=== PATIENT | male | born 1980 | race Caucasian/White ===

== ENCOUNTER → 2016-03-06 | Outpatient (CLI) | payer MEDICARE, MEDICAID ==
--- NOTE | 2016-03-06 14:49 | REP ---
MRI LUMBAR SPINE WITHOUT CONTRAST: 03/06/2016 CLINICAL HISTORY: Severe low back pain. TECHNIQUE: Sagittal T1, T2 and STIR images with axial T1-T2 sequences provided. FINDINGS: There are no comparison studies. The sagittal images show loss of normal lordosis. The disc space height is decreased at L4-5 and more at L5-S1 with loss of disc water signal at both those levels. The disc height and water signal at L3-4 and above are maintained. The vertebral body heights and marrow signal are normal from T12 through S2. Conus terminates at mid body of L1. T12-L1, L1-2, L2-3, L3-4 disc levels all show no sign of spinal or foraminal stenosis. No significant disc bulge or posterior element abnormality. At L4-5, there is a broad-based disc bulge flattening the ventral thecal sac. There is a left paracentral disc protrusion abutting and displacing the left L5 nerve root in the canal. The cross-sectional area of the canal is adequate. The foramen on the right and left side arm both marginally adequate. At L5-S1, this also a broad-based disc bulge abutting but not displacing the S1 nerve roots in the central canal. Cross-sectional area of the canal is adequate. The foramina show encroachment on the left minimally and more on the right. Some nerve root compression suggested on the right. No spondylolysis or spondylolisthesis. IMPRESSION: 1. L4-5 broad-based disc bulge with left paracentral disc protrusion abutting and displacing the L5 root in the neural canal and with marginally adequate foramina at this level. 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 2. At L5-S1, there is a broad-based disc bulge abutting the S1 roots in the canal but not causing central canal stenosis. The foramina showed some mild encroachment on the right and minimal on the left. Some nerve root compression is suggested on that right side. No level shows spondylolysis or spondylolisthesis. No other significant finding. Signed by Charles Flower MD 03/06/2016 07:36 P
== END ==
LOC: M RAD 12:35
PROVIDERS: ATTEND Internal Medicine Infectious Disease
DX: M54.5 Low back pain (principal)

== ENCOUNTER → 2016-10-26 | Outpatient (REF) | payer MEDICARE, MEDICAID ==
[2016-10-26 13:28] LABS: ALBUMIN 3.8 GM/DL (3.2-5.2); ALBUMIN/GLOBULIN RATIO 1.31 (1.00-1.93); ALKALINE PHOSPHATASE 83 U/L (45-117); ALT/SGPT 21 U/L (12-78); ANION GAP 8 MEQ/L (8-16); AST/SGOT 12 U/L (15-37); BILIRUBIN,TOTAL 0.5 MG/DL (0.2-1.0); BLOOD UREA NITROGEN 13 MG/DL (7-18); CALCIUM LEVEL 9.2 MG/DL (8.5-10.1); CARBON DIOXIDE LEVEL 27 MEQ/L (21-32); CHLORIDE LEVEL 109 MEQ/L (98-107); CHOLESTEROL LEVEL 101 MG/DL (<200); CREATININE FOR GFR 1.14 MG/DL (0.70-1.30); GLOMERULAR FILTRATION RATE > 60.0 (>60); GLUCOSE, FASTING 100 MG/DL (70-105); POTASSIUM SERUM 4.5 MEQ/L (3.5-5.1); SODIUM LEVEL 144 MEQ/L (136-145); TOTAL PROTEIN 6.7 GM/DL (6.4-8.2); TRIGLYCERIDES LEVEL 41 MG/DL (<150)
[2016-10-30 14:11] LABS: Eosinophils 1 % (.); HCT 45.5 % (37.5-51.0); HGB 15.4 g/dL (12.6-17.7); Monocytes 7 % (.); Neutrophils 71 % (.); WBC 8.2 x10E3/uL (3.4-10.8)
== END ==
LOC: M SFHCPLAZ 09:29
PROVIDERS: ATTEND Internal Medicine Infectious Disease
DX: B20 Human immunodeficiency virus [HIV] disease (principal); Z13.220 Encounter for screening for lipoid disorders; S32.000A Wedge compression fracture of unspecified lumbar vertebra, initial encounter for closed fracture; F41.1 Generalized anxiety disorder; M51.26 Other intervertebral disc displacement, lumbar region; Z23 Encounter for immunization; Z79.899 Other long term (current) drug therapy; X58.XXXA Exposure to other specified factors, initial encounter; Y92.9 Unspecified place or not applicable; Y93.9 Activity, unspecified; Y99.9 Unspecified external cause status
CPT/HCPCS: 36415; 80053; 80061; 81001; 86360; 86480; 86780; 87491; 87536; 87591; 90686; G0008; G0463

== ENCOUNTER → 2017-05-07 | Outpatient (REF) | payer MEDICAID, MEDICARE, SELFPAY ==
[2017-05-07 12:57] LABS: ALBUMIN 4.1 GM/DL (3.2-5.2); ALBUMIN/GLOBULIN RATIO 1.32 (1.00-1.93); ALKALINE PHOSPHATASE 92 U/L (45-117); ALT/SGPT 22 U/L (12-78); ANION GAP 6 MEQ/L (8-16); AST/SGOT 16 U/L (7-37); BILIRUBIN,TOTAL 1.2 MG/DL (0.2-1.0); BLOOD UREA NITROGEN 18 MG/DL (7-18); CALCIUM LEVEL 9.1 MG/DL (8.5-10.1); CARBON DIOXIDE LEVEL 27 MEQ/L (21-32); CHLORIDE LEVEL 108 MEQ/L (98-107); GLOMERULAR FILTRATION RATE > 60.0 (>60); GLUCOSE, FASTING 89 MG/DL (70-100); POTASSIUM SERUM 4.7 MEQ/L (3.5-5.1); SODIUM LEVEL 141 MEQ/L (136-145); TOTAL PROTEIN 7.2 GM/DL (6.4-8.2)
[2017-05-07 17:05] LABS: APPEARANCE, URINE CLEAR (CLEAR); BACTERIA, URINE AUTO NEGATIVE (NEGATIVE); BILIRUBIN, URINE AUTO NEGATIVE (NEGATIVE); BLOOD, URINE BLOOD 1+ (NEGATIVE); CALCIUM OXALATE CRYSTALS SMALL; COLOR, URINE AMBER (YELLOW); GLUCOSE, URINE (UA) AUTO NEGATIVE (NEGATIVE); KETONE, URINE AUTO NEGATIVE (NEGATIVE); LEUKOCYTE ESTERASE, URINE AUTO NEGATIVE (NEGATIVE); MUCUS, URINE SMALL (NEGATIVE); NITRITE, URINE AUTO NEGATIVE (NEGATIVE); PROTEIN, URINE AUTO NEGATIVE (NEGATIVE); RBC, URINE AUTO 4 /HPF (0-3); SPECIFIC GRAVITY URINE AUTO 1.024 (1.002-1.035); SQUAMOUS EPITHELIAL CELL UR AU 0 /HPF (0-6); WBC, URINE AUTO 1 /HPF (0-3)
[2017-05-07 19:31] LABS: CHLAMYDIA DNA AMPLIFICATION NEGATIVE (NEGATIVE); GC DNA AMPLIFICATION NEGATIVE (NEGATIVE)
[2017-05-09 14:13] LABS: % CD8 Pos Lymph 71.4 % (12.0-35.5); %CD4 Pos Lymphs 16.1 % (30.8-58.5); ABS Eosinophils 0.1 x10E3/uL (0.0-0.4); ABS Lymphs 2.3 x10E3/uL (0.7-3.1); ABS Monocytes 0.6 x10E3/uL (0.1-0.9); ABS Neutophils 4.1 x10E3/uL (1.4-7.0); Abs CD4 Helper 370 /uL (359-1519); Abs CD8 Suppres 1642 /uL (109-897); CD4/CD8 Ratio 0.23 (0.92-3.72); Eosinophils 1 % (Not Estab.); HCT 50.2 % (37.5-51.0); HIV-1 RNA PCR QUANT 2 LC550285 <20 copies/mL (.); Immature Grans 0 % (Not Estab.); Lymphocytes 32 % (Not Estab.); MCH 33.5 pg (26.6-33.0); MCHC 33.9 g/dL (31.5-35.7); MCV 99 fL (79-97); Monocytes 9 % (Not Estab.); Neutrophils 58 % (Not Estab.); Platelets 253 x10E3/uL (150-379); QUANTIFERON GOLD TB Negative (Negative); RBC 5.08 x10E6/uL (4.14-5.80); RDW 13.8 % (12.3-15.4); TB Test (QFT) Antigen 0.05 IU/mL (.); TB Test (QFT) Mitogen >10.00 IU/mL (.); TB Test (QFT) Nil 0.05 IU/mL (.); WBC 7.1 x10E3/uL (3.4-10.8)
== END ==
LOC: M SFHCPLAZ 09:58
DX: B20 Human immunodeficiency virus [HIV] disease (principal); F41.1 Generalized anxiety disorder; A63.0 Anogenital (venereal) warts; M51.26 Other intervertebral disc displacement, lumbar region; Z23 Encounter for immunization; Z79.899 Other long term (current) drug therapy
CPT/HCPCS: 80053

== ENCOUNTER → 2017-12-06 | Outpatient (REF) | payer OTHER, MEDICAID ==
[2017-12-06 14:28] LABS: ALBUMIN 3.2 GM/DL (3.2-5.2); ALKALINE PHOSPHATASE 89 U/L (45-117); ALT/SGPT 22 U/L (12-78); ANION GAP 8 MEQ/L (8-16); AST/SGOT 17 U/L (7-37); BILIRUBIN,TOTAL 0.5 MG/DL (0.2-1.0); BLOOD UREA NITROGEN 16 MG/DL (7-18); CALCIUM LEVEL 8.5 MG/DL (8.5-10.1); CARBON DIOXIDE LEVEL 30 MEQ/L (21-32); CHLORIDE LEVEL 105 MEQ/L (98-107); CREATININE FOR GFR 1.05 MG/DL (0.70-1.30); GLOMERULAR FILTRATION RATE > 60.0 (>60); GLUCOSE, FASTING 64 MG/DL (70-100); POTASSIUM SERUM 4.2 MEQ/L (3.5-5.1); SODIUM LEVEL 143 MEQ/L (136-145); TOTAL PROTEIN 6.1 GM/DL (6.4-8.2)
[2017-12-06 16:36] LABS: CHLAMYDIA DNA AMPLIFICATION NEGATIVE (NEGATIVE); GC DNA AMPLIFICATION NEGATIVE (NEGATIVE)
[2017-12-11 00:07] LABS: % CD8 Pos Lymph 67.8 % (12.0-35.5); %CD4 Pos Lymphs 19.8 % (30.8-58.5); ABS Basophils 0.1 x10E3/uL (0.0-0.2); ABS Eosinophils 0.2 x10E3/uL (0.0-0.4); ABS Lymphs 2.1 x10E3/uL (0.7-3.1); ABS Monocytes 0.7 x10E3/uL (0.1-0.9); ABS Neutophils 3.7 x10E3/uL (1.4-7.0); Abs CD4 Helper 416 /uL (359-1519); Abs CD8 Suppres 1424 /uL (109-897); CD4/CD8 Ratio 0.29 (0.92-3.72); CHLAMYDIA PHARYNGEAL APTIMA Negative (Negative); Eosinophils 3 % (Not Estab.); GC PHARYNGEAL APTIMA Negative (Negative); HCT 42.6 % (37.5-51.0); HGB 14.5 g/dL (13.0-17.7); HIV-1 RNA PCR QUANT 2 LC550285 20 copies/mL (.); HIV-1 RNA PCR QUANT 3 LC550285 1.301 (.); Immature Grans 0 % (Not Estab.); Lymphocytes 31 % (Not Estab.); MCV 94 fL (79-97); Monocytes 10 % (Not Estab.); Neutrophils 55 % (Not Estab.); Platelets 289 x10E3/uL (150-379); RBC 4.53 x10E6/uL (4.14-5.80); WBC 6.8 x10E3/uL (3.4-10.8)
== END ==
LOC: M SFHCPLAZ 10:38
DX: B20 Human immunodeficiency virus [HIV] disease (principal); Z11.3 Encounter for screening for infections with a predominantly sexual mode of transmission

== ENCOUNTER → 2018-06-10 | Outpatient (REF) | payer MEDICAID, OTHER ==
[2018-06-10 12:03] LABS: APPEARANCE, URINE CLEAR (CLEAR); BACTERIA, URINE AUTO NEGATIVE (NEGATIVE); BILIRUBIN, URINE AUTO NEGATIVE (NEGATIVE); BLOOD, URINE BLOOD NEGATIVE (NEGATIVE); COLOR, URINE YELLOW (YELLOW); GLUCOSE, URINE (UA) AUTO NEGATIVE (NEGATIVE); KETONE, URINE AUTO NEGATIVE (NEGATIVE); LEUKOCYTE ESTERASE, URINE AUTO NEGATIVE (NEGATIVE); NITRITE, URINE AUTO NEGATIVE (NEGATIVE); PROTEIN, URINE AUTO NEGATIVE (NEGATIVE); RBC, URINE AUTO 1 /HPF (0-3); SPECIFIC GRAVITY URINE AUTO 1.008 (1.002-1.035); SQUAMOUS EPITHELIAL CELL UR AU 0 /HPF (0-6); UROBILINOGEN, URINE AUTO 0.2 mg/dL (0.0-2.0); WBC, URINE AUTO 0 /HPF (0-3)
[2018-06-10 12:39] LABS: ALBUMIN 3.7 GM/DL (3.2-5.2); ALT/SGPT 17 U/L (12-78); BILIRUBIN,TOTAL 0.9 MG/DL (0.2-1.0); BLOOD UREA NITROGEN 19 MG/DL (7-18); CALCIUM LEVEL 8.5 MG/DL (8.5-10.1); CARBON DIOXIDE LEVEL 28 MEQ/L (21-32); CHLORIDE LEVEL 107 MEQ/L (98-107); CREATININE FOR GFR 1.11 MG/DL (0.70-1.30); GLOMERULAR FILTRATION RATE > 60.0 (>60); GLUCOSE, FASTING 75 MG/DL (70-100); SODIUM LEVEL 139 MEQ/L (136-145); TOTAL PROTEIN 6.2 GM/DL (6.4-8.2)
[2018-06-10 13:31] LABS: CHLAMYDIA DNA AMPLIFICATION NEGATIVE (NEGATIVE); GC DNA AMPLIFICATION NEGATIVE (NEGATIVE)
[2018-06-12 00:06] LABS: % CD8 Pos Lymph 65.5 % (12.0-35.5); %CD4 Pos Lymphs 18.9 % (30.8-58.5); ABS Eosinophils 0.1 x10E3/uL (0.0-0.4); ABS Lymphs 2.5 x10E3/uL (0.7-3.1); ABS Monocytes 0.6 x10E3/uL (0.1-0.9); ABS Neutophils 2.7 x10E3/uL (1.4-7.0); Abs CD4 Helper 473 /uL (359-1519); Abs CD8 Suppres 1638 /uL (109-897); CD4/CD8 Ratio 0.29 (0.92-3.72); Eosinophils 2 % (Not Estab.); HCT 45.7 % (37.5-51.0); HGB 15.5 g/dL (13.0-17.7); Immature Grans 0 % (Not Estab.); Lymphocytes 42 % (Not Estab.); MCH 32.8 pg (26.6-33.0); MCHC 33.9 g/dL (31.5-35.7); MCV 97 fL (79-97); Monocytes 11 % (Not Estab.); Neutrophils 45 % (Not Estab.); Platelets 229 x10E3/uL (150-379); RBC 4.73 x10E6/uL (4.14-5.80); RDW 13.9 % (12.3-15.4)
[2018-06-13 00:06] LABS: HIV-1 RNA PCR QUANT 2 LC550285 <20 copies/mL (.)
== END ==
LOC: M SFHCPLAZ 09:23
PROVIDERS: ATTEND Internal Medicine Infectious Disease
DX: B20 Human immunodeficiency virus [HIV] disease (principal)

== ENCOUNTER → 2018-12-30 | Outpatient (REF) | payer OTHER ==
[2018-12-30 16:07] LABS: ALBUMIN 4.1 GM/DL (3.2-5.2); ALT/SGPT 22 U/L (12-78); BILIRUBIN,TOTAL 0.9 MG/DL (0.2-1.0); BLOOD UREA NITROGEN 14 MG/DL (7-18); CALCIUM LEVEL 9.7 MG/DL (8.5-10.1); CARBON DIOXIDE LEVEL 28 MEQ/L (21-32); CHLORIDE LEVEL 107 MEQ/L (98-107); CREATININE FOR GFR 0.93 MG/DL (0.70-1.30); GLOMERULAR FILTRATION RATE > 60.0 (>60); GLUCOSE, FASTING 85 MG/DL (70-100); POTASSIUM SERUM 4.2 MEQ/L (3.5-5.1); SODIUM LEVEL 140 MEQ/L (136-145); TOTAL PROTEIN 7.3 GM/DL (6.4-8.2)
== END ==
LOC: M SFHCPLAZ 12:57
PROVIDERS: ATTEND Internal Medicine Infectious Disease
DX: B20 Human immunodeficiency virus [HIV] disease (principal)

== ENCOUNTER → 2019-04-24 | Outpatient (REF) | payer OTHER, SELFPAY | LOC: M LAB REF 17:17 | PROVIDERS: ATTEND Dermatology | DX: D49.2 Neoplasm of unspecified behavior of bone, soft tissue, and skin (principal) ==

== ENCOUNTER → 2019-08-25 | Outpatient (REF) | payer MEDICAID, OTHER, SELFPAY ==
[2019-08-25 13:42] LABS: ALBUMIN 3.7 GM/DL (3.2-5.2); ALT/SGPT 20 U/L (12-78); BILIRUBIN,TOTAL 1.7 MG/DL (0.2-1.0); BLOOD UREA NITROGEN 13 MG/DL (7-18); CARBON DIOXIDE LEVEL 28 MEQ/L (21-32); CHLORIDE LEVEL 105 MEQ/L (98-107); CREATININE FOR GFR 1.27 MG/DL (0.70-1.30); GLOMERULAR FILTRATION RATE > 60.0 (>60); GLUCOSE, FASTING 88 MG/DL (70-100); POTASSIUM SERUM 4.1 MEQ/L (3.5-5.1); SODIUM LEVEL 138 MEQ/L (136-145); TOTAL PROTEIN 6.9 GM/DL (6.4-8.2)
[2019-08-27 16:08] LABS: % CD8 Pos Lymph 57.5 % (12.0-35.5); %CD4 Pos Lymphs 23.4 % (30.8-58.5); ABS Basophils 0.1 x10E3/uL (0.0-0.2); ABS Eosinophils 0.1 x10E3/uL (0.0-0.4); ABS Monocytes 0.8 x10E3/uL (0.1-0.9); ABS Neutophils 3.2 x10E3/uL (1.4-7.0); Abs CD4 Helper 468 /uL (359-1519); Abs CD8 Suppres 1150 /uL (109-897); CD4/CD8 Ratio 0.41 (0.92-3.72); Eosinophils 2 % (Not Estab.); HCT 49.1 % (37.5-51.0); HIV-1 RNA PCR QUANT 2 LC550285 <20 copies/mL (.); Immature Grans 0 % (Not Estab.); Lymphocytes 33 % (Not Estab.); MCH 33.5 pg (26.6-33.0); MCHC 34.6 g/dL (31.5-35.7); MCV 97 fL (79-97); Monocytes 13 % (Not Estab.); Neutrophils 51 % (Not Estab.); Platelets 292 x10E3/uL (150-450); RBC 5.07 x10E6/uL (4.14-5.80); RDW 12.9 % (11.6-15.4); WBC 6.2 x10E3/uL (3.4-10.8)
== END ==
LOC: M SFHCPLAZ 09:55
PROVIDERS: ATTEND Internal Medicine Infectious Disease
DX: B20 Human immunodeficiency virus [HIV] disease (principal)

== ENCOUNTER → 2019-11-03 | Outpatient (CLI) | payer MEDICAID ==
[2019-11-03 16:08] LABS: PLATELET COUNT, AUTOMATED 256 10^3/uL (150-450)
[2019-11-03 16:31] LABS: COLLAGEN EPINEPHRINE 67 SECONDS (74-162)
[2019-11-03 16:35] LABS: BLOOD UREA NITROGEN 16 MG/DL (7-18); CREATININE FOR GFR 0.98 MG/DL (0.70-1.30); GLOMERULAR FILTRATION RATE > 60.0 (>60)
[2019-11-03 16:40] LABS: INR 0.96; PROTHROMBIN TIME 12.9 SECONDS (12.5-14.3)
== END ==
LOC: M PLALAB 13:57
PROVIDERS: ATTEND Physician Assistant
DX: M47.817 Spondylosis without myelopathy or radiculopathy, lumbosacral region (principal)

== ENCOUNTER → 2019-11-07 | Outpatient (REF) | payer MEDICAID | LOC: M SFHCPLAZ 13:25 | PROVIDERS: ATTEND Internal Medicine Infectious Disease | DX: N34.2 Other urethritis (principal) ==

== ENCOUNTER → 2020-01-07 | Outpatient (CLI) | payer MEDICAID | LOC: M LABSMTC 09:42 | PROVIDERS: ATTEND Physical Medicine & Rehabilitation | DX: Z01.812 Encounter for preprocedural laboratory examination (principal); Z20.828 Contact with and (suspected) exposure to other viral communicable diseases ==

== ENCOUNTER → 2020-01-07 | Outpatient (CLI) | payer MEDICAID | LOC: M PLALAB 10:05 | PROVIDERS: ATTEND Orthopaedic Surgery | DX: Z01.812 Encounter for preprocedural laboratory examination (principal) ==

== ENCOUNTER → 2020-07-27 | Outpatient (REF) | payer MEDICAID ==
[2020-07-27 16:07] LABS: ALBUMIN 3.9 GM/DL (3.2-5.2); ALT/SGPT 19 U/L (12-78); BILIRUBIN,TOTAL 1.2 MG/DL (0.2-1.0); BLOOD UREA NITROGEN 11 MG/DL (7-18); CARBON DIOXIDE LEVEL 27 MEQ/L (21-32); CHLORIDE LEVEL 110 MEQ/L (98-107); CREATININE FOR GFR 0.94 MG/DL (0.70-1.30); GLOMERULAR FILTRATION RATE > 60.0 (>60); GLUCOSE, FASTING 108 MG/DL (70-100); POTASSIUM SERUM 3.6 MEQ/L (3.5-5.1); SODIUM LEVEL 143 MEQ/L (136-145); TOTAL PROTEIN 6.7 GM/DL (6.4-8.2)
== END ==
LOC: M SFHCPLAZ 13:21
PROVIDERS: ATTEND Internal Medicine Infectious Disease
DX: B20 Human immunodeficiency virus [HIV] disease (principal)

== ENCOUNTER → 2020-12-06 | Outpatient (CLI) | payer MEDICAID, OTHER ==
[2020-12-06 15:38] LABS: ALBUMIN 3.3 GM/DL (3.2-5.2); ALT/SGPT 28 U/L (12-78); BILIRUBIN,TOTAL 0.4 MG/DL (0.2-1.0); BLOOD UREA NITROGEN 11 MG/DL (7-18); CARBON DIOXIDE LEVEL 27 MEQ/L (21-32); CHLORIDE LEVEL 108 MEQ/L (98-107); CHOLESTEROL LEVEL 91 MG/DL (<200); CHOLESTEROL RISK RATIO 2.116 (<5); CREATININE FOR GFR 1.07 MG/DL (0.70-1.30); GLOMERULAR FILTRATION RATE > 60.0 (>60); GLUCOSE, FASTING 98 MG/DL (70-100); HDL CHOLESTEROL 43 MG/DL (>40); LDL CHOLESTEROL 39 MG/DL (<100); NON-HDL-C 48 MG/DL; POTASSIUM SERUM 4.3 MEQ/L (3.5-5.1); SODIUM LEVEL 139 MEQ/L (136-145); TOTAL PROTEIN 6.2 GM/DL (6.4-8.2); TRIGLYCERIDES LEVEL 47 MG/DL (<150)
[2020-12-06 16:23] LABS: GC DNA AMPLIFICATION NEGATIVE (NEGATIVE); HEPATITIS C VIRUS ABY INDEX < 0.0 INDEX (<0.8)
[2020-12-08 07:07] LABS: % CD8 Pos Lymph 54.3 % (12.0-35.5); %CD4 Pos Lymphs 29.2 % (30.8-58.5); ABS Basophils 0.1 x10E3/uL (0.0-0.2); ABS Eosinophils 0.1 x10E3/uL (0.0-0.4); ABS Lymphs 1.6 x10E3/uL (0.7-3.1); ABS Monocytes 0.9 x10E3/uL (0.1-0.9); ABS Neutophils 6.3 x10E3/uL (1.4-7.0); Abs CD4 Helper 467 /uL (359-1519); Abs CD8 Suppres 869 /uL (109-897); CD4/CD8 Ratio 0.54 (0.92-3.72); CHLAMYDIA PHARYNGEAL APTIMA Negative (Negative); Eosinophils 1 % (Not Estab.); GC PHARYNGEAL APTIMA Negative (Negative); HCT 47.2 % (37.5-51.0); HGB 15.9 g/dL (13.0-17.7); HIV-1 RNA PCR QUANT 2 LC550285 <20 copies/mL (.); Immature Grans 0 % (Not Estab.); Lymphocytes 17 % (Not Estab.); MCH 32.9 pg (26.6-33.0); MCHC 33.7 g/dL (31.5-35.7); MCV 98 fL (79-97); Monocytes 10 % (Not Estab.); Neutrophils 71 % (Not Estab.); Platelets 333 x10E3/uL (150-450); RBC 4.84 x10E6/uL (4.14-5.80); RDW 12.9 % (11.6-15.4)
== END ==
LOC: M PLALAB 09:42
PROVIDERS: ATTEND Internal Medicine Infectious Disease
DX: Z11.3 Encounter for screening for infections with a predominantly sexual mode of transmission (principal)

== ENCOUNTER → 2021-05-12 | Outpatient (CLI) | payer OTHER ==
[2021-05-12 13:53] LABS: ALBUMIN 3.7 GM/DL (3.2-5.2); ALT/SGPT 25 U/L (12-78); BILIRUBIN,TOTAL 0.9 MG/DL (0.2-1.0); BLOOD UREA NITROGEN 13 MG/DL (7-18); CALCIUM LEVEL 9.1 MG/DL (8.5-10.1); CARBON DIOXIDE LEVEL 27 MEQ/L (21-32); CHLORIDE LEVEL 107 MEQ/L (98-107); CREATININE FOR GFR 0.99 MG/DL (0.70-1.30); GLOMERULAR FILTRATION RATE > 60.0 (>60); GLUCOSE, FASTING 91 MG/DL (70-100); POTASSIUM SERUM 4.8 MEQ/L (3.5-5.1); SODIUM LEVEL 140 MEQ/L (136-145); TOTAL PROTEIN 6.7 GM/DL (6.4-8.2)
[2021-05-12 14:39] LABS: GC DNA AMPLIFICATION POSITIVE (NEGATIVE)
[2021-05-12 17:27] LABS: GC DNA AMPLIFICATION POSITIVE (NEGATIVE)
== END ==
LOC: M PLALAB 09:40
PROVIDERS: ATTEND Internal Medicine Infectious Disease
DX: R36.9 Urethral discharge, unspecified (principal)

== ENCOUNTER → 2021-08-11 | Outpatient (REF) | payer OTHER | LOC: M SFHCPLAZ 12:51 | PROVIDERS: ATTEND Internal Medicine Infectious Disease | DX: R10.13 Epigastric pain (principal); Z87.19 Personal history of other diseases of the digestive system ==

== ENCOUNTER → 2021-12-12 | Outpatient (CLI) | payer OTHER ==
[2021-12-12 15:43] LABS: ALBUMIN 3.6 GM/DL (3.2-5.2); ALT/SGPT 17 U/L (12-78); BLOOD UREA NITROGEN 22 MG/DL (7-18); CALCIUM LEVEL 9.2 MG/DL (8.5-10.1); CARBON DIOXIDE LEVEL 28 MEQ/L (21-32); CHLORIDE LEVEL 103 MEQ/L (98-107); CREATININE FOR GFR 1.15 MG/DL (0.70-1.30); GLOMERULAR FILTRATION RATE > 60.0 (>60); GLUCOSE, FASTING 69 MG/DL (70-100); POTASSIUM SERUM 3.9 MEQ/L (3.5-5.1); SODIUM LEVEL 137 MEQ/L (136-145); TOTAL PROTEIN 6.6 GM/DL (6.4-8.2)
[2021-12-12 16:43] LABS: GC DNA AMPLIFICATION NEGATIVE (NEGATIVE)
[2021-12-12 16:48] LABS: GC DNA AMPLIFICATION NEGATIVE (NEGATIVE)
[2021-12-13 20:10] LABS: % CD8 Pos Lymph 48.6 % (12.0-35.5); %CD4 Pos Lymphs 30.8 % (30.8-58.5); ABS Basophils 0.1 x10E3/uL (0.0-0.2); ABS Eosinophils 0.2 x10E3/uL (0.0-0.4); ABS Lymphs 1.6 x10E3/uL (0.7-3.1); ABS Neutophils 3.3 x10E3/uL (1.4-7.0); Abs CD4 Helper 493 /uL (359-1519); Abs CD8 Suppres 778 /uL (109-897); CD4/CD8 Ratio 0.63 (0.92-3.72); Eosinophils 3 % (Not Estab.); HCT 44.7 % (37.5-51.0); HGB 15.5 g/dL (13.0-17.7); HIV-1 RNA PCR QUANT 2 LC550285 <20 copies/mL (.); Immature Grans 0 % (Not Estab.); Lymphocytes 27 % (Not Estab.); MCH 32.6 pg (26.6-33.0); MCHC 34.7 g/dL (31.5-35.7); MCV 94 fL (79-97); Monocytes 16 % (Not Estab.); Neutrophils 53 % (Not Estab.); Platelets 271 x10E3/uL (150-450); RBC 4.75 x10E6/uL (4.14-5.80); WBC 6.1 x10E3/uL (3.4-10.8)
== END ==
LOC: M WUC 08:41
PROVIDERS: ATTEND Internal Medicine Infectious Disease
DX: B20 Human immunodeficiency virus [HIV] disease (principal); Z11.3 Encounter for screening for infections with a predominantly sexual mode of transmission

== ENCOUNTER → 2023-04-17 | Outpatient (REF) | payer OTHER ==
[2023-04-17 19:37] LABS: GC DNA AMPLIFICATION NEGATIVE (NEGATIVE)
[2023-04-18 14:33] LABS: GC DNA AMPLIFICATION NEGATIVE (NEGATIVE)
== END ==
LOC: M LAB REF 13:30
PROVIDERS: ATTEND Internal Medicine Infectious Disease
DX: Z11.3 Encounter for screening for infections with a predominantly sexual mode of transmission (principal); A63.0 Anogenital (venereal) warts

== ENCOUNTER → 2023-04-17 | Outpatient (CLI) | payer OTHER ==
[2023-04-17 17:08] LABS: ALBUMIN 3.5 G/DL (3.2-5.2); ALKALINE PHOSPHATASE 86 U/L (46-116); ALT/SGPT 13 U/L (7.0-40); AST/SGOT < 8 U/L (<34); BILIRUBIN,TOTAL 0.4 MG/DL (0.3-1.2); BLOOD UREA NITROGEN 19 MG/DL (9-23); CALCIUM LEVEL 8.5 MG/DL (8.5-10.1); CARBON DIOXIDE LEVEL 25 MMOL/L (20-31); CHLORIDE LEVEL 109 MMOL/L (98-107); CHOLESTEROL LEVEL 138 MG/DL (<200); CHOLESTEROL RISK RATIO 3.63 (<5); CREATININE FOR GFR 0.82 MG/DL (0.70-1.30); GLOMERULAR FILTRATION RATE > 60.0 (>60); GLUCOSE, FASTING 105 MG/DL (60-100); POTASSIUM SERUM 4.2 MMOL/L (3.5-5.1); SODIUM LEVEL 137 MMOL/L (136-145); TOTAL PROTEIN 6.7 G/DL (5.7-8.2); TRIGLYCERIDES LEVEL 70 MG/DL (<150)
[2023-04-17 17:09] LABS: THYROID STIMULATING HORMONE 0.846 uIU/ML (0.55-4.78)
[2023-04-17 17:10] LABS: HEPATITIS B SURFACE ANTIBODY POSITIVE (POSITIVE)
[2023-04-17 17:42] LABS: HEPATITIS C VIRUS ABY INDEX 0.05 INDEX (<0.8)
== END ==
LOC: M WUC 14:22
PROVIDERS: ATTEND Internal Medicine Infectious Disease
DX: Z11.3 Encounter for screening for infections with a predominantly sexual mode of transmission (principal)